=== PATIENT | female | born 1965 | race Caucasian/White ===

== ENCOUNTER → 2016-11-15 | Outpatient (CLI) | payer OTHER ==
[~2016-11-15] MED LIST: ALBU1AER9 INH; ATV1 PO; BUPR-79 PO; BUPRTAB51 PO; CENTRUM; CLMTP1 TD; DULO-24 PO; HYDR-5688 PO; LAMO100T16 PO; LAMO200T38 PO; LAMO25TA PO; LITH300T2 PO; MEDLIST; METH-307 PO; NALO1TAB2 PO; OXYC1TAB3 PO; PRM625 TOP; PROP10TA7 PO; PROP20TA67 PO
--- NOTE | 2016-11-15 16:20 | DIAGNOSTIC IMAGING REPORT ---
TWO VIEW CHEST CLINICAL HISTORY: Cough. FINDINGS: PA and lateral chest radiographs are compared to study dated 06/02/2010. The cardiomediastinal silhouette is unremarkable. The lungs and pleural spaces are clear. There is no pneumothorax. The bony thorax appears intact. IMPRESSION: No active disease in the chest. Electronically signed by: Juan Pablo Martínez M.D. 11/15/2016 4:18 PM Dictated Date/Time: 11/15/2016 4:17 PM
== END | disposition home or self-care (01) ==
LOC: C.RAD1850 16:08
PROVIDERS: ATTEND Nurse Practitioner Family
DX: R05 Cough (principal)

== ENCOUNTER → 2016-11-30 | Outpatient (CLI) | payer OTHER ==
[2016-11-30 13:02] LABS: BASO % 0.6 %; BASO ABS # 0.03 K/uL (0-0.2); COMPLETE YES; EOS % 4.3 %; HEMATOCRIT 42.2 % (37-47); IG% 0.2 %; LYMPH % 31.3 %; LYMPH ABS # 1.62 K/uL (1.2-3.4); MEAN CELL VOLUME 103.4 fL (80-100); MEAN CORPUSCULAR HEMOGLOBIN 33.3 pg (25-34); MEAN CORPUSCULAR HGB CONC 32.2 g/dl (32-36); MEAN PLATELET VOLUME 9.5 fL (7.4-10.4); NEUT % 52.6 %; PLATELET COUNT 237 K/uL (130-400); RED BLOOD COUNT 4.08 M/uL (4.2-5.4); WHITE BLOOD COUNT 5.17 K/uL (4.8-10.8)
[2016-11-30 13:25] LABS: BLOOD UREA NITROGEN 10 mg/dl (7-18); BUN/CREATININE RATIO 9.9 (10-20); CALCIUM 9.7 mg/dl (8.5-10.1); CARBON DIOXIDE 26 mmol/L (21-32); CHLORIDE 109 mmol/L (98-107); GLUCOSE 82 mg/dl (70-99); POTASSIUM 4.3 mmol/L (3.5-5.1); SODIUM 141 mmol/L (136-145)
[2016-12-01 23:31] LABS: BORDETELLA PERTUSSIS SOURCE Swab
== END | disposition home or self-care (01) ==
LOC: C.LAB 11:45
PROVIDERS: ATTEND Nurse Practitioner Family
DX: R06.02 Shortness of breath (principal); R05 Cough

== ENCOUNTER → 2017-01-19 | Outpatient (CLI) | payer OTHER | END | disposition home or self-care (01) | LOC: C.LABBFT 10:43 | PROVIDERS: ATTEND Psychiatry & Neurology Psychiatry | DX: Z79.899 Other long term (current) drug therapy (principal) ==

== ENCOUNTER → 2017-02-12 | Day surgery (SDC) | payer OTHER ==
[2017-01-31 14:26] VITALS: Ht 160 cm; Wt 74.5 kg
[~2017-02-12] VITALS: Ht 160 cm; Wt 74.5 kg
[~2017-02-12] MED LIST changes: -CENTRUM; -CLMTP1 TD; -HYDR-5688 PO; -LAMO200T38 PO; +LIDOCAINE HCL 2% 2 ML VIAL (20MG/ML) ONE; -MEDLIST; -METH-307 PO; +MIDAZOLAM HCL 1 MG/ML 2ML VIAL ONE; +ONDANSETRON INJ 2 MG/ML 2 ML VIAL ONE; -PROP10TA7 PO; +PROPOFOL IV EMULSION 10 MG/ML 20 ML VIAL IV ONE; +SODIUM CHLORIDE 0.9% 500ML 500 ML IV ONE
--- NOTE | 2017-02-12 09:37 | Endo History and Physical ---
History & Physical Date of Service: Feb 12, 2017. Chief Complaint: screening Referring Physician: Dr. Marguerite Zhang History of Present Illness 51 yo CF who presents for screening colonoscopy. Past Medical History Other Psy. Disorders, Anxiety, Other Past Surgical History Hx Cardiac Surgery: No Hx Internal Defibrillator: No Hx Pacemaker: No Hx Abdominal Surgery: Yes (KE[facility] BSO, REMOVAL OF BARTHOLIN GLAND, LAP X 3) Hx of Implantable Prosthesis: No Hx Post-Op Nausea and Vomiting: No Hx Cancer Surgery: No Hx Thoracic Surgery: No Hx Orthopedic: Yes Hx Urinary Tract Surgery: No Family History None Social History Smoking Status: Former Smoker Hx Substance Use: No Hx Alcohol Use: No Allergies Coded Allergies: Pregabalin (Verified Allergy, Mild, MUSCLE SPASMS, 01/31/17) Nitrofurantoin (Verified Allergy, Unknown, ITCHY, 02/12/17) Tramadol (Verified Allergy, Unknown, SEIZURE, 02/12/17) Gabapentin (Verified Adverse Reaction, Severe, "PERSONALITY CHANGE", ) Current Medications Reported Home Medications Medications Dose Route/Sig Max Daily Dose Days Date Category Dose Instructions Cymbalta (Duloxetine HCl) 20 Mg Cap 1 Cap PO DAILY 30 02/12/17 Reported Premarin (Estrogens Conjugated) 0.625 Mg Tab 0.625 Mg TOP DAILY 01/31/17 Reported Movantik (Naloxegol Oxalate) 25 Mg Tab 25 Mg PO QAM 01/31/17 Reported Roxicodone Ir (Oxycodone HCl) 5 Mg Tab 5 Mg PO Q6H PRN 01/31/17 Reported Wellbutrin Sr (Bupropion HCl) 150 Mg Ertab 150 Mg PO AFTERNOON 01/31/17 Reported Lamictal (Lamotrigine) 100 Mg Tab 200 Mg PO QAM 01/31/17 Reported Inderal (Propranolol HCl) 20 Mg Tab 40 Mg PO BID 01/31/17 Reported Wellbutrin-Xl (Bupropion HCl) 300 Mg Tabcr 300 Mg PO QAM 01/31/17 Reported Proair Hfa (Albuterol) Aers 108 Mcg INH QID 08/12/14 Reported USE TWO PUFFS FOUR TIMES A DAY Lamictal (Lamotrigine) 25 Mg Tab 25 Mg PO 08/12/14 Reported TAKE 2 TABLET PM Ativan * (Lorazepam) 1 Mg Tab 2 Mg PO BID 06/02/10 Reported [place] Carbonate 300 Mg Tab 300 Mg PO QID 05/15/08 Reported 2 TABLET IN AM AND 2 TABLETS AT BEDTIME Vital Signs Weight (Kilograms): 74.55 Height (Feet): 5 Height (Inches): 3 Date Time Temp Pulse Resp B/P Pulse Ox O2 Delivery O2 Flow Rate FiO2 02/12/17 09:12 36.5 54 16 112/76 98 Room Air Physical Exam General Appearance: WD/WN, no apparent distress Respiratory/Chest: Auscultation: breath sounds normal Cardiovascular: Heart Auscultation: RRR Abdomen: Bowel Sounds: normal Inspection & Palpation: soft, non-distended, no tenderness, guarding & rebound Assessment and Plan Assessment: 51 yo CF who presents for screening colonoscopy. Plan: Proceed with colonoscopy.
--- NOTE | 2017-02-12 09:55 | Discharge Instructions ---
Endoscopy Patient Instructions Date / Procedure(s) Performed Feb 12, 2017. Colonoscopy Allergy Information Coded Allergies: Pregabalin (Verified Allergy, Mild, MUSCLE SPASMS, 01/31/17) Nitrofurantoin (Verified Allergy, Unknown, ITCHY, 02/12/17) Tramadol (Verified Allergy, Unknown, SEIZURE, 02/12/17) Gabapentin (Verified Adverse Reaction, Severe, "PERSONALITY CHANGE", ) Discharge Date / Findings Feb 12, 2017. Internal hemorrhoids Medication Instructions OK to resume all medications today as prescribed Reported Home Medications Medications Dose Route/Sig Max Daily Dose Days Date Category Dose Instructions Cymbalta (Duloxetine HCl) 20 Mg Cap 1 Cap PO DAILY 30 02/12/17 Reported Premarin (Estrogens Conjugated) 0.625 Mg Tab 0.625 Mg TOP DAILY 01/31/17 Reported Movantik (Naloxegol Oxalate) 25 Mg Tab 25 Mg PO QAM 01/31/17 Reported Roxicodone Ir (Oxycodone HCl) 5 Mg Tab 5 Mg PO Q6H PRN 01/31/17 Reported Wellbutrin Sr (Bupropion HCl) 150 Mg Ertab 150 Mg PO AFTERNOON 01/31/17 Reported Lamictal (Lamotrigine) 100 Mg Tab 200 Mg PO QAM 01/31/17 Reported Inderal (Propranolol HCl) 20 Mg Tab 40 Mg PO BID 01/31/17 Reported Wellbutrin-Xl (Bupropion HCl) 300 Mg Tabcr 300 Mg PO QAM 01/31/17 Reported Proair Hfa (Albuterol) Aers 108 Mcg INH QID 08/12/14 Reported USE TWO PUFFS FOUR TIMES A DAY Lamictal (Lamotrigine) 25 Mg Tab 25 Mg PO 08/12/14 Reported TAKE 2 TABLET PM Ativan * (Lorazepam) 1 Mg Tab 2 Mg PO BID 06/02/10 Reported [place] Carbonate 300 Mg Tab 300 Mg PO QID 05/15/08 Reported 2 TABLET IN AM AND 2 TABLETS AT BEDTIME Provider Instructions Activity Restrictions - No exercising or heavy lifting for 24 hours. - Do not drink alcohol the day of the procedure. - Do not drive a car or operate machinery until the day after the procedure. - Do not make any important decisions or sign important papers in 24 hours after the procedure. Following Day: - Return to full activity which may include returning to work/school. Diet Start your diet with liquids and light foods (jello, soup, juice, toast). Then eat your usual diet if not nauseated. Treatment For Common After Affects For mild abdominal pain, bloating, or excessive gas: - Rest - Eat lightly - Lie on right side Follow-Up Information Follow-up with Dr. Marguerite Zhang as scheduled Anesthesia Information What You Should Know You have had a procedure that required some medicine to reduce anxiety and discomfort. This treatment is called moderate sedation. After receiving the treatment, you may be sleepy, but you will be able to breathe on your own. The effects of the treatment may last for several hours. Follow these instructions along with Activity/Diet recommendations noted above: * Do NOT do anything where dizziness or clumsiness would be dangerous. * Rest quietly at home today, then you can be up and about tomorrow. * Have a responsible person stay with you the rest of today. * You may have had an I.V. today. If so, you may take the dressing off later today. Recommendations Call your doctor if: * Trouble breathing * Continuous vomiting for more than 24 hours * Temperature above 101 degrees * Severe abdominal pain or bloating * Pain not relieved by pain medicine ordered * There is increased drainage or redness from any incision * A large amount of rectal bleeding greater than 2-3 tablespoons. (If you had a polyp/s removed or have hemorrhoids, a small amount of blood - from the rectum is to be expected.) * You have any unanswered questions or concerns. IN THE EVENT OF A SERIOUS EMERGENCY, GO TO THE NEAREST EMERGENCY ROOM Your discharge instructions were prepared by provider Binh Rivero. Patient Instructions Signature Page Osorio Casas Patient (or Guardian) Signature/Date: I have read and understand the instructions given to me by my caregivers. Caregiver/RN/Doctor Signature/Date: The above-named patient and/or guardian has received patient instructions on this date. + Original Patient Signature Page (only) stays with chart. Please make copy for patient.
--- NOTE | 2017-02-12 10:12 | GI REPORT ---
Procedure Date: 02/12/2017 9:30 AM Procedure: Colonoscopy Indications: Screening for colorectal malignant neoplasm Medicines: Monitored Anesthesia Care Complications: No immediate complications. Estimated Blood Loss: Estimated blood loss: none. Procedure: Pre-Anesthesia Assessment: - Prior to the procedure, a History and Physical was performed, and patient medications and allergies were reviewed. The patient's tolerance of previous anesthesia was also reviewed. The risks and benefits of the procedure and the sedation options and risks were discussed with the patient. All questions were answered, and informed consent was obtained. Prior Anticoagulants: The patient has taken no previous anticoagulant or antiplatelet agents. ASA Grade Assessment: II - A patient with mild systemic disease. After reviewing the risks and benefits, the patient was deemed in satisfactory condition to undergo the procedure. After I obtained informed consent, the scope was passed under direct vision. Throughout the procedure, the patient's blood pressure, pulse, and oxygen saturations were monitored continuously. The scope was introduced through the anus and advanced to the terminal ileum. The colonoscopy was performed without difficulty. The patient tolerated the procedure well. The quality of the bowel preparation was good. The terminal ileum, ileocecal valve, appendiceal orifice, and rectum were photographed. Findings: Non-bleeding internal hemorrhoids were found during retroflexion. The hemorrhoids were small. Impression: - Non-bleeding internal hemorrhoids. - No specimens collected. Recommendation: - Resume previous diet. - Continue present medications. - Repeat colonoscopy in 10 years for surveillance. - Return to primary care physician as previously scheduled. Binh Rivero DO 02/12/2017 10:10:43 AM This report has been signed electronically. Note Initiated On: 02/12/2017 9:30 AM I attest to the content of the Intraoperative Record and orders documented therein, exceptions below
[2017-02-12 10:27] VITALS: BP 106/64; PULSE 53; O2SAT 94
--- NOTE | 2017-02-12 10:40 | Anesthesiology Progress Note ---
Anesthesia Post Op Note Date & Time Feb 12, 2017 at 10:39 Vital Signs Pain Intensity: 0 Vital Signs Past 12 Hours Date Time Temp Pulse Resp B/P Pulse Ox O2 Delivery O2 Flow Rate FiO2 02/12/17 10:27 53 16 106/64 94 Room Air 02/12/17 10:12 53 16 101/67 95 Room Air 02/12/17 09:57 54 16 157/100 96 Room Air 02/12/17 09:12 36.5 54 16 112/76 98 Room Air Notes Mental Status: alert / awake / arousable, participated in evaluation Pt Amnestic to Procedure: Yes Nausea / Vomiting: adequately controlled Pain: adequately controlled Airway Patency, RR, SpO2: stable & adequate BP & HR: stable & adequate Hydration State: stable & adequate Anesthetic Complications: no major complications apparent
== END | disposition home or self-care (01) ==
LOC: C.GI 08:21
PROVIDERS: ATTEND Internal Medicine
DX: Z12.11 Encounter for screening for malignant neoplasm of colon (principal); K64.8 Other hemorrhoids; F41.9 Anxiety disorder, unspecified; F32.9 Major depressive disorder, single episode, unspecified; F31.9 Bipolar disorder, unspecified; Z98.890 Other specified postprocedural states; Z87.891 Personal history of nicotine dependence; Z79.899 Other long term (current) drug therapy; Z68.29 Body mass index [BMI] 29.0-29.9, adult

== ENCOUNTER → 2017-02-27 | Outpatient (CLI) | payer OTHER ==
[~2017-02-27] MED LIST changes: -LIDOCAINE HCL 2% 2 ML VIAL (20MG/ML) ONE; -MIDAZOLAM HCL 1 MG/ML 2ML VIAL ONE; -ONDANSETRON INJ 2 MG/ML 2 ML VIAL ONE; -PROPOFOL IV EMULSION 10 MG/ML 20 ML VIAL IV ONE; -SODIUM CHLORIDE 0.9% 500ML 500 ML IV ONE
[2017-02-27 13:44] LABS: ALT/SGPT 19 U/L (12-78); AST/SGOT 15 U/L (15-37); BLOOD UREA NITROGEN 9 mg/dl (7-18); BUN/CREATININE RATIO 9.6 (10-20); CALCIUM 9.8 mg/dl (8.5-10.1); CARBON DIOXIDE 26 mmol/L (21-32); CHLORIDE 108 mmol/L (98-107); CREATININE 0.97 mg/dl (0.60-1.20); GLUCOSE 87 mg/dl (70-99); POTASSIUM 4.2 mmol/L (3.5-5.1); SODIUM 140 mmol/L (136-145)
[2017-02-27 13:55] LABS: ALB/GLOB RATIO 1.1 (0.9-2); ALKALINE PHOSPHATASE 78 U/L (45-117); CHOLESTEROL 211 mg/dl (0-200); CHOLESTEROL/HDL RATIO 3.6; HDL CHOLESTEROL 59 mg/dl; LDL CHOLESTEROL CALCULATED 129 mg/dl; TRIGLYCERIDES 115 mg/dl (0-150); VERY LOW DENSITY LIPOPROT CALC 23 mg/dl
== END | disposition home or self-care (01) ==
LOC: C.LAB1850 11:03
PROVIDERS: ATTEND Psychiatry & Neurology Psychiatry
DX: F31.81 Bipolar II disorder (principal); Z51.81 Encounter for therapeutic drug level monitoring; Z79.899 Other long term (current) drug therapy

== ENCOUNTER → 2017-05-08 | Outpatient (CLI) | payer OTHER | END | disposition home or self-care (01) | LOC: C.PATHSPEC 16:30 | PROVIDERS: ATTEND Dermatology | DX: L82.1 Other seborrheic keratosis (principal); L91.8 Other hypertrophic disorders of the skin ==

== ENCOUNTER → 2017-05-09 | Outpatient (CLI) | payer OTHER ==
[2017-05-09 18:08] LABS: RHEUMATOID FACTOR < 10.0 U/mL (0-15); URIC ACID 4.4 mg/dl (2.6-7.2)
[2017-05-15 02:51] LABS: ALBUMIN 4.1 G/DL (3.8-4.8); ANTI-CENTROMERE AB <1.0 NEG AI (<1.0 NEG); ANTI-SS-A <1.0 NEG AI (<1.0 NEG); ANTI-SS-B <1.0 NEG AI (<1.0 NEG); DNA ds CRITHIDIA NEGATIVE (NEGATIVE); GAMMA GLOBULIN 0.8 G/DL (0.8-1.7); PARVOVIRUS IgG INDEX 1.4 (<0.9); PARVOVIRUS IgM INDEX 0.1 (<0.9); Sm Antibody <1.0 NEG AI (<1.0 NEG); TOTAL PROTEIN 6.2 G/DL (6.2-8.3)
== END | disposition home or self-care (01) ==
LOC: C.LAB1850 16:15
PROVIDERS: ATTEND Internal Medicine Rheumatology
DX: M79.89 Other specified soft tissue disorders (principal); M25.532 Pain in left wrist

== ENCOUNTER → 2017-05-14 | Outpatient (CLI) | payer OTHER ==
[~2017-05-14] MED LIST changes: +GADAVIST IV PRN
--- NOTE | 2017-05-14 09:12 | DIAGNOSTIC IMAGING REPORT ---
MRI THE LEFT WRIST WITHOUT AND WITH CONTRAST CLINICAL HISTORY: Left wrist pain and swelling. COMPARISON STUDY: Conventional radiographic evaluation the left hand dated 11/10/2016 FINDINGS: Imaging was performed in the sagittal, axial, and coronal planes before and after the administration of 7.5 cc of intravenous Gadavist. There are no areas of pathologic marrow edema. There is mild dorsal soft tissue edema. No tendon tears are visualized. There is no evidence of major ligamentous disruption. There is no evidence of pathologic synovial enhancement. There are no bony erosions. There is a 5 mm ganglion cyst adjacent to the flexor carpi radialis tendon. IMPRESSION: 1. Dorsal soft tissue swelling 2. 5 mm ganglion cyst adjacent to the flexor carpi radialis tendon 3. No significant bony abnormalities. No evidence of pathologic synovial enhancement Electronically signed by: August Keyes M.D. 05/14/2017 9:11 AM Dictated Date/Time: 05/14/2017 8:57 AM
== END | disposition home or self-care (01) ==
LOC: C.MRI 07:35
PROVIDERS: ATTEND Internal Medicine Rheumatology
DX: M67.432 Ganglion, left wrist (principal); M25.532 Pain in left wrist

== ENCOUNTER → 2017-07-09 | Outpatient (CLI) | payer OTHER ==
[~2017-07-09] MED LIST changes: -GADAVIST IV PRN
== END | disposition home or self-care (01) ==
LOC: C.LABBFT 09:42
PROVIDERS: ATTEND Psychiatry & Neurology Psychiatry
DX: F31.81 Bipolar II disorder (principal)

== ENCOUNTER → 2017-07-09 | Outpatient (CLI) | payer OTHER ==
--- NOTE | 2017-07-09 14:38 | DIAGNOSTIC IMAGING REPORT ---
CERVICAL SPINE RADIOGRAPHS, INCLUDING FLEXION AND EXTENSION CLINICAL HISTORY: Cervical disc disease. Left hand weakness. COMPARISON STUDY: Cervical spine radiographs February 19, 2015 and MRI of the cervical spine February 26, 2015. FINDINGS: Reversal of the normal cervical lordosis is unchanged. There is no evidence for cervical spine instability during flexion or extension. There is moderate disc space narrowing at C5-C6 and C6-C7. No fracture or suspicious lesion is present. There is mild multilevel facet arthrosis. IMPRESSION: 1. No evidence for cervical spine stability. 2. Moderate degenerative disc disease at C5-C6 and C6-C7. 3. No cervical spine fracture. Electronically signed by: Sergo Cavanaugh M.D. 07/09/2017 2:37 PM Dictated Date/Time: 07/09/2017 2:35 PM
== END | disposition home or self-care (01) ==
LOC: C.RAD 14:03
PROVIDERS: ATTEND Family Medicine
DX: M79.89 Other specified soft tissue disorders (principal); M50.322 Other cervical disc degeneration at C5-C6 level; M50.323 Other cervical disc degeneration at C6-C7 level; R29.898 Other symptoms and signs involving the musculoskeletal system; F31.81 Bipolar II disorder

== ENCOUNTER → 2017-07-19 | Outpatient (CLI) | payer OTHER ==
[~2017-07-19] MED LIST changes: +GADAVIST IV PRN
--- NOTE | 2017-07-19 20:21 | DIAGNOSTIC IMAGING REPORT ---
CERVICAL SPINE COMBO CLINICAL HISTORY: 51 years-old Female presenting with M54.2 Neck painM46.92 Arthritis of neckR29.898 Left hand weakness. TECHNIQUE: Multisequence, multiplanar MR imaging of the cervical spine was performed before and after the administration of intravenous contrast. IV contrast: 7.5 mL of Gadavist. COMPARISON: 02/26/2015. FINDINGS: Localizer images: Unremarkable. Straightening of normal cervical lordosis with slight kyphotic reversal. Vertebral bodies maintain normal height, alignment, and bone marrow signal intensity. Previously noted bony edema related to degenerative change has resolved. Minimal fatty endplate changes are now evident most prominently at C6-7. Multilevel degenerative changes with disc osteophyte complexes noted at nearly every level as on prior exam, further detailed below: C2-3: Normal. C3-4: Right uncovertebral hypertrophy results in mild right neural foraminal narrowing. No spinal canal narrowing. C4-5: Minimal disc osteophyte complex without significant neural foraminal or spinal canal narrowing. C5-6: Disc osteophyte complex with uncovertebral hypertrophy effaces the ventral thecal sac mildly contouring the ventral cord. Moderate to severe right and moderate left neural foraminal narrowing results. C6-7: Disc osteophyte complex and uncovertebral hypertrophy again efface the ventral thecal sac minimally contouring the ventral aspect of the spinal cord. Mild bilateral neural foraminal narrowing noted. C7-T1: Right eccentric disc osteophyte complex results in mild right neural foraminal narrowing. No significant spinal canal narrowing. Spinal cord demonstrates normal morphology, although there may be minimally increased signal intensity within the spinal cord from C5 to C7. However, this is not grossly apparent on axial imaging to corroborate the findings on the sagittal plane. No evidence of spinal cord atrophy. Craniocervical junction normal. Paraspinal soft tissues normal. Postcontrast imaging demonstrates no abnormal enhancement of the spinal cord. Incidental note made of a cystic lesion within the left lobe of the thyroid. IMPRESSION: 1. Multilevel degenerative changes most severe at C5-6 and C6-7. The most significant degree of neural foraminal narrowing is noted at C5-6. Effacement of the thecal sac and mild contouring of the spinal cord at C5-6 and C6-7. 2. Questionable associated increased signal intensity within the spinal cord from C5 to C7, which raises concern for edema or myelomalacia. No gross cord atrophy. Short-term follow-up imaging noncontrast MR of the C-spine could be obtained if clinically warranted to confirm these findings. Follow-up examination should include dedicated axial MERGE sequence to better assess the spinal cord on axial imaging. Electronically signed by: Kaden Mckenna M.D. 07/19/2017 8:20 PM Dictated Date/Time: 07/19/2017 8:08 PM
== END | disposition home or self-care (01) ==
LOC: C.MRI 18:17
PROVIDERS: ATTEND Family Medicine
DX: M46.92 Unspecified inflammatory spondylopathy, cervical region (principal); M50.90 Cervical disc disorder, unspecified, unspecified cervical region; R29.898 Other symptoms and signs involving the musculoskeletal system; M79.89 Other specified soft tissue disorders

== ENCOUNTER → 2017-08-06 | Outpatient (CLI) | payer OTHER ==
[~2017-08-06] MED LIST changes: -GADAVIST IV PRN
[2017-08-06 18:01] LABS: ALB/GLOB RATIO 0.9 (0.9-2); ALKALINE PHOSPHATASE 74 U/L (45-117); ALT/SGPT 17 U/L (12-78); AST/SGOT 14 U/L (15-37); BLOOD UREA NITROGEN 11 mg/dl (7-18); CARBON DIOXIDE 23 mmol/L (21-32); CHLORIDE 110 mmol/L (98-107); CREATININE 0.86 mg/dl (0.60-1.20); GLUCOSE 84 mg/dl (70-99); POTASSIUM 4.5 mmol/L (3.5-5.1); SODIUM 141 mmol/L (136-145)
== END | disposition home or self-care (01) ==
LOC: C.LABBFT 11:52
PROVIDERS: ATTEND Psychiatry & Neurology Psychiatry
DX: F31.81 Bipolar II disorder (principal)

== ENCOUNTER → 2017-08-20 | Outpatient (CLI) | payer OTHER ==
--- NOTE | 2017-08-20 13:43 | DIAGNOSTIC IMAGING REPORT ---
L ART DOP DUP UPPER EXT UNI HISTORY: 51 years-old Female SWELLING acute left upper upper extremity swelling COMPARISON: Nonvascular ultrasound of the left upper extremity of same day TECHNIQUE: Multiple real-time sonographic images of the left upper extremity arterial system was obtained assessing grayscale appearance, color and spectral flow. FINDINGS: Left arm blood pressure measured 123/63. Right upper extremity blood pressure measured 123/58. The arterial structures of the left upper extremity are patent with normal three-vessel arterial flow identified. Mildly elevated peak systolic velocity of the right subclavian artery at 146 cm/s is noted without definite abnormality seen on the grayscale images. Otherwise, normal peak systolic velocities are seen. IMPRESSION: 1. Patent arteries of the left upper extremity. 2. Mildly elevated peak systolic velocity of the left subclavian artery may reflect underlying vessel stenosis. The above report was generated using voice recognition software. It may contain grammatical, syntax or spelling errors. Electronically signed by: Sanjay Carvalho M.D. 08/20/2017 1:41 PM Dictated Date/Time: 08/20/2017 1:37 PM
--- NOTE | 2017-08-20 13:46 | DIAGNOSTIC IMAGING REPORT ---
CHEST 2 VIEWS ROUTINE HISTORY: 51 years-old Female SWELLING OF L HAND acute swelling of the left hand with lymphadenopathy COMPARISON: Chest radiographs 11/15/2016 TECHNIQUE: Frontal and lateral views of the chest FINDINGS: Cardiomediastinal and hilar silhouettes are within normal limits. There is no pneumothorax, pleural effusion, focal airspace consolidation or overt pulmonary edema. Bones of the chest are grossly intact. IMPRESSION: No acute cardiopulmonary process. The above report was generated using voice recognition software. It may contain grammatical, syntax or spelling errors. Electronically signed by: Sanjay Carvalho M.D. 08/20/2017 1:44 PM Dictated Date/Time: 08/20/2017 1:44 PM
--- NOTE | 2017-08-20 13:47 | DIAGNOSTIC IMAGING REPORT ---
L EXTREMITY NONVASCULAR LIMITED HISTORY: 51 years-old Female HAND SWELLING acute left hand swelling COMPARISON: Left upper extremity duplex arterial ultrasound of same day TECHNIQUE: 3 real-time sonographic images of the left wrist were obtained assessing grayscale appearance. FINDINGS: Within the area of concern within the left wrist, there is no focal soft tissue abnormality, collection or mass identified. No echogenic foreign body. IMPRESSION: Unremarkable ultrasound of the left wrist soft tissues. The above report was generated using voice recognition software. It may contain grammatical, syntax or spelling errors. Electronically signed by: Sanjay Carvalho M.D. 08/20/2017 1:46 PM Dictated Date/Time: 08/20/2017 1:45 PM
--- NOTE | 2017-08-20 14:29 | DIAGNOSTIC IMAGING REPORT ---
ULTRASOUND L VENOUS DOPPLER UPR EXT UNIL CLINICAL HISTORY: Left hand swelling COMPARISON STUDY: No previous studies for comparison. FINDINGS: No intraluminal thrombus was visualized. The internal jugular, subclavian, axillary, cephalic, brachial, basilic, radial, and ulnar veins were patent. IMPRESSION: No evidence of left upper extremity DVT Electronically signed by: August Keyes M.D. 08/20/2017 2:27 PM Dictated Date/Time: 08/20/2017 1:37 PM
== END | disposition home or self-care (01) ==
LOC: C.ULTR 12:01
PROVIDERS: ATTEND Orthopaedic Surgery
DX: M79.89 Other specified soft tissue disorders (principal)

== ENCOUNTER → 2017-09-07 | Outpatient (CLI) | payer OTHER ==
[~2017-09-07] MED LIST changes: +OPTIRAY 320 IV PRN
--- NOTE | 2017-09-07 09:01 | DIAGNOSTIC IMAGING REPORT ---
CT SCAN OF THE CHEST WITH IV CONTRAST CLINICAL HISTORY: Left upper extremity pain and swelling. COMPARISON STUDY: Chest radiograph dated 08/20/2017. TECHNIQUE: Following the IV administration of 120 cc of Optiray 320, CT scan of the thorax was performed from the thoracic inlet to the upper abdomen. Images are reviewed in the axial, sagittal, and coronal planes. IV contrast was administered without complication. A dose lowering technique was utilized adhering to the principles of ALARA. The examination is degraded by streak artifact from the left arm which could not be elevated above the chest. CT DOSE: 228.03 mGy.cm FINDINGS: Thyroid: Imaged portions of the thyroid gland are normal in size and attenuation. A 1.6 cm complex nodule is identified in the left thyroid lobe. A 0.8 cm nodule is seen in the right lobe. Thoracic aorta: The thoracic aorta is normal in caliber and demonstrates standard 3-vessel arch anatomy. No dissection is seen. Pulmonary vasculature: The pulmonary trunk is normal in caliber. There are no filling defects identified in the central pulmonary vessels to indicate pulmonary embolus. Note that this examination was not protocoled for evaluation of the pulmonary arteries. Heart: The heart is normal in size and configuration, and without pericardial effusion. There are scattered coronary artery calcifications. Lungs and pleural spaces: The lungs and pleural spaces are clear noting dependent atelectasis. The trachea and central airways are patent. Mediastinum: There is no mediastinal lymphadenopathy. Audra: Clear. Axillae: There is no axillary lymphadenopathy. Upper abdomen: There is a tiny hiatal hernia. Partially visualized upper abdominal viscera is otherwise within normal limits. Skeletal structures: No lytic or blastic bony lesions are seen. There is deformity of the distal left clavicle, likely related to remote trauma. IMPRESSION: 1. The lungs are clear. 2. No left axillary abnormality is seen. 3. There are bilateral thyroid nodules measuring up to 1.6 cm. Follow-up with a nonemergent thyroid ultrasound is recommended for further assessment. Electronically signed by: Juan Pablo Martínez M.D. 09/07/2017 9:00 AM Dictated Date/Time: 09/07/2017 8:55 AM
== END | disposition home or self-care (01) ==
LOC: C.CTS 08:22
PROVIDERS: ATTEND Family Medicine
DX: M79.602 Pain in left arm (principal); M79.89 Other specified soft tissue disorders

== ENCOUNTER → 2017-10-05 | Outpatient (CLI) | payer OTHER ==
[~2017-10-05] MED LIST changes: -OPTIRAY 320 IV PRN
--- NOTE | 2017-10-08 07:49 | MAMMOGRAPHY REPORT ---
BILATERAL DIGITAL SCREENING MAMMOGRAM TOMOSYNTHESIS WITH CAD: 10/05/2017 CLINICAL HISTORY: Routine screening. Patient has no complaints. TECHNIQUE: Breast tomosynthesis in addition to standard 2D mammography was performed. Current study was also evaluated with a Computer Aided Detection (CAD) system. COMPARISON: Comparison is made to exams dated: 08/10/2015 mammogram, 08/15/2016 mammogram, 05/12/2014 mammogram, 02/25/2013 mammogram, 02/13/2012 mammogram, and 02/09/2011 mammogram - [facility]. BREAST COMPOSITION: The tissue of both breasts is heterogeneously dense, which may obscure small mas ses. FINDINGS: No suspicious masses, calcifications, or areas of architectural distortion are noted in ei ther breast. There has been no significant interval change compared to prior exams. IMPRESSION: ACR BI-RADS CATEGORY 1: NEGATIVE There is no mammographic evidence of malignancy. A 1 year screening mammogram is recommended. The pa tient will receive written notification of the results. Approximately 10% of breast cancers are not detected with mammography. A negative mammographic report should not delay biopsy if a clinically suggestive mass is present. Kandi Chopra M.D. ah/:10/05/2017 14:55:30 Multiple Coil Winder: Shayy BRADLEY(Elizabeth)(Feroz), [facility] letter sent: Normal 1/2 BI-RADS Code: ACR BI-RADS Category 1: Negative
== END | disposition home or self-care (01) ==
LOC: C.MAMM 14:24
PROVIDERS: ATTEND Family Medicine
DX: Z12.31 Encounter for screening mammogram for malignant neoplasm of breast (principal)

== ENCOUNTER → 2017-10-08 | Outpatient (CLI) | payer OTHER ==
--- NOTE | 2017-10-08 17:31 | DIAGNOSTIC IMAGING REPORT ---
THYROID ULTRASOUND CLINICAL HISTORY: Thyroid nodule. COMPARISON STUDY: CTA of the neck August 24, 2017. TECHNIQUE: Sonography of the thyroid gland was performed. FINDINGS: The right thyroid lobe measures 5.8 x 2.2 x 1.6 cm and the left lobe measures 5.2 x 2.2 x 2.1 cm. Note is made of a 1.9 x 1.1 x 1.1 cm predominantly cystic nodule within the upper pole of the right thyroid lobe. This has low level internal echoes without color flow. Note is also made of a 1.9 x 1.3 x 1.7 cm mixed cystic and solid left lower pole thyroid nodule. Color flow is identified within the solid component. IMPRESSION: Two thyroid nodules, as described above. These nodules are likely benign however ultrasound-guided fine aspiration of these nodules is recommended. Electronically signed by: Sergo Cavanaugh M.D. 10/08/2017 5:30 PM Dictated Date/Time: 10/08/2017 3:17 PM
== END | disposition home or self-care (01) ==
LOC: C.ULTR 14:35
PROVIDERS: ATTEND Family Medicine
DX: E04.1 Nontoxic single thyroid nodule (principal)

== ENCOUNTER → 2017-10-15 | Outpatient (CLI) | payer OTHER ==
--- NOTE | 2017-10-15 14:40 | DIAGNOSTIC IMAGING REPORT ---
ULTRASOUND-GUIDED FINE-NEEDLE ASPIRATION THYROID CLINICAL HISTORY: Bilateral thyroid nodules. COMPARISON STUDY: Thyroid ultrasound 10/08/2017. LEFT THYROID NODULE: The risks, benefits, and alternatives to the procedure were discussed with the patient. Written informed consent was obtained. The patient was placed supine in ultrasound, and the 1.9 cm mixed cystic and solid nodule in the left lobe of the thyroid was localized by ultrasound and selected for fine needle aspiration. The left neck was prepped and draped in the usual sterile fashion. The nodule was aspirated under ultrasound guidance with 3 passes utilizing 25-gauge needles. Specimens were reviewed by the pathologist in real-time and deemed adequate for diagnosis. The patient tolerated the procedure well. RIGHT THYROID NODULE: PROCEDURE: The risks, benefits, and alternatives to the procedure were discussed with the patient. Written informed consent was obtained. The patient was placed supine in ultrasound, and the 1.9 cm nodule in the right lobe of the thyroid was localized by ultrasound and selected for fine needle aspiration. The right neck was prepped and draped in the usual sterile fashion. The nodule was aspirated under ultrasound guidance with 3 passes utilizing 25-gauge needles. Specimens were reviewed by the pathologist in real-time and several samples demonstrated a considerable amount of blood per the pathologist. The patient did experience some pain during biopsy of the right thyroid nodule. No repeated passes were attempted. The patient otherwise tolerated the procedure well and left the department in satisfactory condition. IMPRESSION: Completed fine-needle aspiration of bilateral thyroid nodules as above. The above report was generated using voice recognition software. It may contain grammatical, syntax or spelling errors. Electronically signed by: Sanjay Carvalho M.D. 10/15/2017 2:39 PM Dictated Date/Time: 10/15/2017 2:34 PM
== END | disposition home or self-care (01) ==
LOC: C.ULTR 12:35
PROVIDERS: ATTEND Family Medicine
DX: E04.1 Nontoxic single thyroid nodule (principal)

== ENCOUNTER → 2017-12-31 | Outpatient (CLI) | payer OTHER ==
[2017-12-31 17:39] LABS: HEMATOCRIT 42.2 % (37-47); HEMOGLOBIN 13.5 g/dL (12.0-16.0); MEAN CELL VOLUME 100.7 fL (80-100); MEAN CORPUSCULAR HEMOGLOBIN 32.2 pg (25-34); MEAN PLATELET VOLUME 9.8 fL (7.4-10.4); PLATELET COUNT 252 K/uL (130-400); RED CELL DISTRIBUTION WIDTH CV 13.7 % (11.5-14.5); RED CELL DISTRIBUTION WIDTH SD 50.6 fL (36.4-46.3); WHITE BLOOD COUNT 4.32 K/uL (4.8-10.8)
[2017-12-31 18:04] LABS: BLOOD UREA NITROGEN 10 mg/dl (7-18); CALCIUM 9.3 mg/dl (8.5-10.1); CARBON DIOXIDE 29 mmol/L (21-32); CREATININE 0.94 mg/dl (0.60-1.20); GLUCOSE 88 mg/dl (70-99); POTASSIUM 4.2 mmol/L (3.5-5.1); SODIUM 139 mmol/L (136-145)
== END | disposition home or self-care (01) ==
LOC: C.LABPBG 14:57
PROVIDERS: ATTEND Family Medicine
DX: R42 Dizziness and giddiness (principal)

== ENCOUNTER → 2018-01-14 | Outpatient (CLI) | payer OTHER ==
[2018-01-14 13:10] LABS: BASO % 0.7 %; BASO ABS # 0.03 K/uL (0-0.2); EOS % 3.6 %; EOS ABS # 0.16 K/uL (0-0.5); HEMOGLOBIN 12.7 g/dL (12.0-16.0); IG# 0.01 K/uL (0.00-0.02); LYMPH % 36.9 %; LYMPH ABS # 1.63 K/uL (1.2-3.4); MEAN CELL VOLUME 102.8 fL (80-100); MEAN CORPUSCULAR HEMOGLOBIN 32.6 pg (25-34); MEAN CORPUSCULAR HGB CONC 31.8 g/dl (32-36); MEAN PLATELET VOLUME 9.5 fL (7.4-10.4); MONO % 10.2 %; MONO ABS # 0.45 K/uL (0.11-0.59); NEUT % 48.4 %; NEUT ABS # 2.14 K/uL (1.4-6.5); PLATELET COUNT 260 K/uL (130-400); RED CELL DISTRIBUTION WIDTH CV 14.5 % (11.5-14.5); RED CELL DISTRIBUTION WIDTH SD 54.5 fL (36.4-46.3); WHITE BLOOD COUNT 4.42 K/uL (4.8-10.8)
[2018-01-14 14:06] LABS: ALBUMIN 3.5 gm/dl (3.4-5.0); ALT/SGPT 22 U/L (12-78); AST/SGOT 13 U/L (15-37); BLOOD UREA NITROGEN 14 mg/dl (7-18); CARBON DIOXIDE 26 mmol/L (21-32); CHOLESTEROL 227 mg/dl (0-200); CREATININE 0.84 mg/dl (0.60-1.20); GLUCOSE 81 mg/dl (70-99); POTASSIUM 4.1 mmol/L (3.5-5.1); SODIUM 140 mmol/L (136-145)
[2018-01-14 14:07] LABS: ALKALINE PHOSPHATASE 58 U/L (45-117); LDL CHOLESTEROL CALCULATED 142 mg/dl; TOTAL PROTEIN 6.8 gm/dl (6.4-8.2)
== END | disposition home or self-care (01) ==
LOC: C.LABPBG 10:35
PROVIDERS: ATTEND Family Medicine
DX: R42 Dizziness and giddiness (principal); F31.81 Bipolar II disorder; E78.5 Hyperlipidemia, unspecified; Z51.81 Encounter for therapeutic drug level monitoring

== ENCOUNTER → 2018-02-19 | Outpatient (CLI) | payer OTHER ==
[2018-02-19 17:10] LABS: ALBUMIN 3.5 gm/dl (3.4-5.0); ALT/SGPT 27 U/L (12-78); AST/SGOT 18 U/L (15-37); BLOOD UREA NITROGEN 18 mg/dl (7-18); CALCIUM 9.7 mg/dl (8.5-10.1); CARBON DIOXIDE 26 mmol/L (21-32); GLUCOSE 88 mg/dl (70-99); POTASSIUM 4.8 mmol/L (3.5-5.1); SODIUM 139 mmol/L (136-145)
[2018-02-19 17:13] LABS: ALKALINE PHOSPHATASE 67 U/L (45-117); TOTAL PROTEIN 6.9 gm/dl (6.4-8.2)
== END | disposition home or self-care (01) ==
LOC: C.LABBFT 11:53
PROVIDERS: ATTEND Psychiatry & Neurology Psychiatry
DX: F31.81 Bipolar II disorder (principal)

== ENCOUNTER → 2018-06-21 | Outpatient (CLI) | payer OTHER ==
[~2018-06-21] MED LIST changes: +OXYC-90 PO; -OXYC1TAB3 PO
== END | disposition home or self-care (01) ==
LOC: C.LABPBG 13:52
PROVIDERS: ATTEND Physician Assistant
DX: Z11.59 Encounter for screening for other viral diseases (principal)